=== PATIENT | male | born 1965 | race Caucasian/White ===

== ENCOUNTER 2020-06-09 12:43 | Emergency (ER) | payer OTHER ==
[2020-06-09] MEDS ORDERED: Bupivacaine HCl 0.5%/Epinephrine 1:200,000/PF 30 ml Vial ONE (12:49)
[2020-06-09] MEDS ORDERED: Budesonide 0.5 MG/2 ML NEB ONE (12:50)
[2020-06-09] MEDS ORDERED: Bupivacaine 0.5% 10 ML VIAL ONE (12:53)
[2020-06-09] MEDS ORDERED: Sodium Chloride 0.9% 100 ML ONE (13:23)
[2020-06-09] MEDS ORDERED: cefTRIAXone\\ROCEPHIN 2 GM VIAL ONE (13:23)
[2020-06-09] MEDS ORDERED: Boostrix 0.5 ML (Tdap) VIAL ONE (15:18)
[2020-06-09] MEDS ORDERED: Bacitracin 1 PK ONE (15:51)
--- NOTE | 2020-06-09 16:59 | RAD ---
RIGHT HAND THREE VIEWS: 06/09/20 Amputation of over half of the distal phalanx of the index finger is noted, as well as amputation of the third digit through the mid portion of the middle phalanx and an amputation of the fourth finger at the base of the distal phalanx was seen. There is a small leanna of bone avulsed from the terminal tuft of the fifth digit, but this finger is larger intact. An old healed fracture at the base of the fifth metacarpal is seen. The other carpal bones appear nor mal. IMPRESSION: Amputations of the second through fourth digits. POS: HOME
== END 2020-06-09 16:14 | disposition home or self-care (01) ==
LOC: BURERS 12:43
DX: S68.110A Complete traumatic metacarpophalangeal amputation of right index finger, initial encounter (principal); S68.112A Complete traumatic metacarpophalangeal amputation of right middle finger, initial encounter; S68.114A Complete traumatic metacarpophalangeal amputation of right ring finger, initial encounter; F17.210 Nicotine dependence, cigarettes, uncomplicated; W27.0XXA Contact with workbench tool, initial encounter
CPT/HCPCS: 26951; 90471; 90715; 96365; J0696; J3490; J7626

== ENCOUNTER 2020-06-30 09:46 | Emergency (ER) | payer OTHER ==
[2020-06-30] MEDS ORDERED: Lidocaine 1% PF 5 ML VIAL ONE (11:35)
== END 2020-06-30 12:12 | disposition home or self-care (01) ==
LOC: BURERS 09:46
DX: S61.210D Laceration without foreign body of right index finger without damage to nail, subsequent encounter (principal); S61.212D Laceration without foreign body of right middle finger without damage to nail, subsequent encounter; S61.214D Laceration without foreign body of right ring finger without damage to nail, subsequent encounter; S61.216D Laceration without foreign body of right little finger without damage to nail, subsequent encounter; F17.210 Nicotine dependence, cigarettes, uncomplicated
CPT/HCPCS: 64450

== ENCOUNTER 2021-06-20 18:57 | Emergency (ER) | payer OTHER ==
[2021-06-20] MEDS ORDERED: Lidocaine 1% PF 5 ML VIAL ONE (19:11)
== END 2021-06-20 20:12 | disposition home or self-care (01) ==
LOC: BURERS 18:57
DX: S01.01XA Laceration without foreign body of scalp, initial encounter (principal); E04.1 Nontoxic single thyroid nodule; W01.198A Fall on same level from slipping, tripping and stumbling with subsequent striking against other object, initial encounter; F17.210 Nicotine dependence, cigarettes, uncomplicated
CPT/HCPCS: 12002; 70450; 72125

== ENCOUNTER 2023-10-18 15:43 | Outpatient (CLI) | payer OTHER | END 2023-10-18 15:44 | disposition home or self-care (01) | LOC: BURRAD 15:43 | PROVIDERS: ATTEND Family Medicine | DX: S79.911A Unspecified injury of right hip, initial encounter (principal); M16.11 Unilateral primary osteoarthritis, right hip ==